=== PATIENT | male | born 1950 | race Caucasian/White ===

== ENCOUNTER → 2024-06-27 | Outpatient (CLI) | payer OTHER, SELFPAY ==
--- NOTE | 2024-06-27 12:48 | XR_ITS ---
Examination: Bilateral wrists 6 views Technique one AP lateral right lateral each wrist total 6 views Exam date and time: June 27, 2024 1304 hours INDICATIONS: Bilateral wrist pain several months. FINDINGS: Mild narrowing radiocarpal intercarpal and carpometacarpal joints No erosive arthritis Small soft tissue calcification dorsal to the carpal bones right wrist on the lateral view No avascular necrosis No fractures IMPRESSION: Mild bilateral osteoarthritis
--- NOTE | 2024-06-27 12:48 | XR_ITS ---
Examination: Bilateral hands, 6 views. Technique: AP, Oblique, Lateral each hand total 6 views Date and time of exam: June 27, 2024 1259 hours INDICATIONS: Bilateral hand pain and swelling several months Findings: Mild osteopenia No fracture or dislocation involving either hand Mild bilateral osteoarthritis involving joints of the wrist and hands No erosive arthritis No cortical bone obstruction No opaque foreign bodies IMPRESSION: Mild bilateral osteoarthritis
== END | disposition home or self-care (01) ==
LOC: CDIM 12:11
PROVIDERS: PCP Family Medicine
DX: M19.042 Primary osteoarthritis, left hand (principal); M19.041 Primary osteoarthritis, right hand; M19.032 Primary osteoarthritis, left wrist; M19.031 Primary osteoarthritis, right wrist
CPT/HCPCS: 73110; 73130